=== PATIENT | female | born 1995 | race American Indian/Alaskan Native ===

== ENCOUNTER 2017-04-09 05:51 | Outpatient (CLI) | payer MEDICAID ==
[2017-04-09 06:06] VITALS: BP 127/80
== END 2017-04-09 06:38 | disposition left against medical advice (07) ==
LOC: TRG 05:51
PROVIDERS: ATTEND Obstetrics & Gynecology
DX: O47.1 False labor at or after 37 completed weeks of gestation (principal); Z87.891 Personal history of nicotine dependence; Z3A.38 38 weeks gestation of pregnancy

== ENCOUNTER 2018-01-29 23:02 | Emergency (ER) | payer MEDICAID | END 2018-01-30 01:22 | disposition left against medical advice (07) | LOC: ED 23:02 | DX: J11.1 Influenza due to unidentified influenza virus with other respiratory manifestations (principal); Z53.21 Procedure and treatment not carried out due to patient leaving prior to being seen by health care provider ==

== ENCOUNTER 2018-02-05 19:24 | Emergency (ER) | payer MEDICAID ==
[2018-02-05 19:31] VITALS: BP 110/85
== END 2018-02-05 23:50 | disposition left against medical advice (07) ==
LOC: ED 19:24
DX: R09.89 Other specified symptoms and signs involving the circulatory and respiratory systems (principal); Z53.21 Procedure and treatment not carried out due to patient leaving prior to being seen by health care provider